=== PATIENT | female | born 1950 | race Two or more races ===

== ENCOUNTER 2018-05-27 09:00 | Inpatient (IN) | payer OTHER ==
[~2018-05-27] VITALS: Ht 162.6 cm; Wt 109.8 kg
[2018-05-27] MEDS ORDERED: LOSARTAN-HCTZ1 EACH PO (16:29)
[2018-05-27] MEDS ORDERED: SYNTHROID75 MCG PO (16:29)
== END 2018-06-14 17:55 | disposition home or self-care (01) | DRG 331 ==
LOC: RECOVERY 06-05 08:30 → O/R 06-12 07:03 → SURH 06-12 12:10
PROVIDERS: ADMIT Colon & Rectal Surgery
PROC: 0DJD8ZZ Inspection of Lower Intestinal Tract, Via Natural or Artificial Opening Endoscopic (ICD-10-PCS; 2018-06-12)
PROC: 0DTN4ZZ Resection of Sigmoid Colon, Percutaneous Endoscopic Approach (ICD-10-PCS; principal; 2018-06-12 07:00)
DX: K57.32 Diverticulitis of large intestine without perforation or abscess without bleeding (principal); E03.8 Other specified hypothyroidism